=== PATIENT | male | born 1955 | race Caucasian/White ===

== ENCOUNTER 2025-01-14 01:41 | Emergency (ER) | payer MEDICARE, OTHER, SELFPAY ==
[2025-01-14 01:42] VITALS: BMI 25.8
[2025-01-14 01:55] VITALS: BP 139/81; PULSE 106; RESP 19; TEMP 36.4; O2SAT 96
--- NOTE | 2025-01-14 01:59 | XR_ITS ---
Examination: CT chest with intravenous contrast CT abdomen with intravenous contrast CT pelvis with intravenous contrast 2-D coronal and sagittal reconstructions Time of exam: January 14, 2025 at 0521 hours INDICATIONS: Patient fell off a yesterday with injury of the chest and abdomen, chest pain, abdomen obtained . CTDI: vol (mGy) : 11.9 DLP: (mGycm): 938 Technique: Multiple axial images of the chest, abdomen and pelvis with intravenous contrast, 3.0 mm slice thickness. Images obtained post intravenous injection Isovue 370 60 cc. 2-D sagittal and coronal reconstructions. Low dose protocols were performed. One or more of the following dose reduction techniques were used; automated exposure control, adjustment of the mA and/or KV according to patient size, use of iterative reconstruction technique. Findings: Thoracic aorta pulmonary arteries intact, no hemopericardium 5 mm pulmonary nodule right upper lobe 2 mm pulmonary nodule right middle lobe No pneumothorax hemothorax or pulmonary contusion Manubrium, sternum, thoracic and lumbar vertebral bodies appear intact No rib fractures noted Enhancing lesion dome of the liver probable hemangioma, 20 mm No liver splenic or renal laceration no perinephric hematoma Abdominal aorta intact, no free body in the abdomen or pelvis Urinary bladder intact Hips and bones of the pelvis is intact IMPRESSION: No hemopericardium, pneumothorax, pulmonary contusion or hemothorax No abdominal parenchymal laceration Abdominal aorta intact No free body in the abdomen or pelvis Heavy calcification versus stent in the left anterior descending coronary artery Recommend 6 month follow-up CT chest without contrast to document stability of pulmonary nodules described above
--- NOTE | 2025-01-14 02:01 | XR_ITS ---
Examination: CT brain head without contrast. 2-D sagittal coronal reconstructions Date and time of exam:January 14, 2025 0517 hours INDICATIONS: Patient fell 3 feet off a ladder with injury to the head today, head pain CTDI: vol (mGy):47.5 DLP: (mGycm):981 Technique: Multiple CT axial sections of the brain have been obtained, 5 mm slice thickness. Contrast has not been administered. 2-D sagittal, coronal reconstructions have been obtained Low dose protocols were performed. One or more of the following dose reduction techniques were used; automated exposure control, adjustment of the mA and/or KV according to patient size, use of iterative reconstruction technique. Findings: No significant ventricular enlargement. Intra-axial or extra-axial hemorrhage density is not seen. No mass effect or midline shift Basal cisterns are not remarkable. Fourth ventricle is midline. Cranial vault intact. Impression: Negative for acute hemorrhage, mass effect or midline shift
--- NOTE | 2025-01-14 02:01 | XR_ITS ---
Examination: CT cervical spine without contrast 2-D sagittal reconstructions 2-D coronal reconstructions 3-D reconstructions. Exam date and time:January 14, 2025 0517 hours INDICATIONS: Patient fell off a ladder today with injury to the neck, neck pain CTDI:vol (mGy) 8.61 DLP: (mGycm) 199 Technique: Multiple 2 mm axial sections of the cervical spine have been obtained. The coronal and sagittal reconstructions have been obtained. 3-D reconstructions have been obtained. Low dose protocols were performed. One or more of the following dose reduction techniques were used; automated exposure control, adjustment of the mA and/or KV according to patient size, use of iterative reconstruction technique. Findings: Axial sections demonstrate intact base of the skull. C1 exhibit satisfactory relationship to the odontoid. No acute cervical vertebral body fracture seen. Alignment posterior spinous processes satisfactory. Impression: No acute cervical fracture. 6 mm nodule right upper lobe, consider CT chest without contrast follow-up
--- NOTE | 2025-01-14 02:02 | EDRME_ITS ---
Rapid Medical Screening Exam [facility] Arrival date/time: 01/14/25 01:41 69M with history of CAD on Plavix presents to ED with mid back pain after mechanical fall backwards yesterday. There is also some vague ab pain and N/V. Chief Complaint: Back Pain/Injury Vital signs: Vital Signs Temperature 97.6 F 01/14/25 01:55 Pulse Rate 106 H 01/14/25 01:55 Respiratory Rate 19 01/14/25 01:55 Blood Pressure 139/81 H 01/14/25 01:55 Pulse Oximetry (%) 96 01/14/25 01:55 Oxygen Delivery Method Room Air 01/14/25 01:55
[2025-01-14 02:29] LABS: Collection Type, Urine Clean Catch; Squamous Epithelial Cell,Urine 0 /hpf (0-5)
[2025-01-14 02:34] LABS: Basophils # (Auto) 0.1 Thou/mm3 (0.0-0.2); Basophils % (Auto) 1 % (0-2.5); Eosinophils # (Auto) 0.1 Thou/mm3 (0.0-0.5); Eosinophils % (Auto) 1 % (0-10); Hematocrit 46.2 % (41.0-53.0); Hemoglobin 16.2 g/dL (13.5-16.0); Immature Granulocytes % (Auto) 0 % (0-0); Immature Granulocytes Auto 0.02 Thou/mm3 (0.00-0.00); Lymphocytes % (Auto) 37 % (10-50); Mean Corpuscular HGB Conc 35.1 g/dl (31.0-37.0); Mean Corpuscular Hemoglobin 28.4 pg (25.0-35.0); Mean Corpuscular Volume 81 fL (80-100); Monocytes # (Auto) 0.8 Thou/mm3 (0.0-0.8); Monocytes % (Auto) 9 % (0-12); Neutrophils # (Auto) 4.2 Thou/mm3 (1.8-7.7); Neutrophils % (Auto) 52 % (37-80); Nucleated Red Blood Cell % 0 /100 WBC (0); Platelet Count 253 Thou/mm3 (140-440); RDW Standard Deviation 38.9 fL (35.1-43.9); Red Blood Count 5.71 Miln/mm3 (4.50-5.90); White Blood Count 8.1 Thou/mm3 (3.8-10.6)
[2025-01-14 02:36] LABS: Bilirubin,Urine Negative (Negative); Blood,Urine Negative (Negative); Clarity,Urine Clear (Clear/Hazy); Color,Urine Lt-Yellow (Lt Yel-Yel); Glucose, Urine Negative (Negative); Ketones,Urine Negative (Negative); Leukocyte Esterase,Urine Negative (Negative); Nitrite,Urine Negative (Negative); PH,Urine 6.5 (5.0-7.0); Protein,Urine Negative (Neg - Trace); RBC,Urine 4 /hpf (0-3); Specific Gravity,Urine 1.026 (1.001-1.035); Urobilinogen,Urine Negative mg/dL (0.0-1.0); WBC,Urine 1 /hpf (0-5)
[2025-01-14] MEDS: MORPHINE SULF INJ 10 MG/ML VIAL 5 MG IVP (02:36)
[2025-01-14] MEDS: ONDANSETRON INJ 2 MG/ML INJ 2 ML 4 MG IV (02:36)
[2025-01-14 02:59] LABS: Alanine Aminotransferase 17 U/L (10-49); Albumin, Serum 4.3 gm/dL (3.4-4.8); Albumin/Globulin Ratio 1.7 (1.2-2.2); Alkaline Phosphatase 72 U/L (46-116); Anion Gap 12 (7-16); Aspartate Amino Transferase 24 U/L (0-34); BUN/Creatinine Ratio 15 Ratio (12-20); Bilirubin,Total 0.5 mg/dL (0.3-1.2); Blood Urea Nitrogen 18 mg/dL (9-23); Calcium 9.8 mg/dL (8.3-10.6); Calcium (Corrected) 9.8 mg/dL (8.5-10.1); Carbon Dioxide 21.5 mMol/L (20.0-31.0); Chloride 109 mMol/L (98-107); Creatinine (Component) 1.2 mg/dL (0.6-1.3); Estimated Creatinine Clearance 57.8 mL/min (>60); Globulin 2.6 gm/dL (2.3-3.5); Glucose 126 mg/dL (74-106); Osmolality,Calculated 287 (275-295); Potassium 3.8 mMol/L (3.4-5.1); Sodium 142 mMol/L (136-145); Total Protein 6.9 gm/dL (5.7-8.2); eGFR > 60 See Note
--- NOTE | 2025-01-14 05:37 | PRELIM_ITS ---
CT scan of the head without intravenous contrast (axial sections with sagittal and coronal reformats) January 14, 2025 0517 hours Clinical History: Fall on thinner; nausea/vomiting; back pain. Comparison: None. Findings: There is no evidence of intracranial hemorrhage, mass effect or midline shift. There are periventricular white matter hypodensities, compatible with chronic small vessel ischemia. There is mild volume loss. The calvarium is intact. The mastoid air cells and the visualized paranasal sinuses are clear. Impression: No evidence of intracranial hemorrhage, midline shift or calvarial fracture. Periventricular chronic small vessel ischemia and volume loss. Report Electronically Signed By: Luis Armando Vasquez 01/14/2025 5:37:01 AM [EST]
--- NOTE | 2025-01-14 05:39 | PRELIM_ITS ---
CT scan of the cervical spine without intravenous contrast (axial sections with sagittal and coronal reformats) January 14, 2025 0517 hours Clinical History: Fall on thinner; nausea/vomiting; back pain. Comparison: None. Findings: There is no fracture or subluxation. The prevertebral soft tissues are unremarkable. Loss of the physiologic cervical lordosis. Right upper lobe lung nodule measuring 0.6 cm. Impression: No evidence of fracture or subluxation. Right upper lobe lung nodule, correlation with imaging of the chest is recommended. Report Electronically Signed By: Luis Armando Vasquez 01/14/2025 5:38:27 AM [EST]
--- NOTE | 2025-01-14 05:54 | PRELIM_ITS ---
CT scan of the chest, abdomen and pelvis with intravenous contrast (axial sections with sagittal and coronal reformats) January 14, 2025 at 0521 hours Clinical History: Fall on thinner, nausea vomiting back pain. Comparison: None. Findings: Right upper lobe lung nodule measuring 0.7 cm. There is no pleural effusion or pneumothorax. There is no mediastinal collection or aortic injury. There is no pericardial effusion. The gallbladder, spleen, pancreas, adrenals and kidneys are unremarkable. Hyperenhancing lesion of the liver dome measures 1.6 cm. The bowel is unremarkable. The urinary bladder is unremarkable. There is no free fluid or air. No fracture is identified. Diverticulosis of the colon. Dilated left atrium. Coronary arteries calcifications. Impression: 1. No visceral or bony injury to the chest, abdomen or pelvis. 2. Hyperenhancing lesion of the liver dome, consider further evaluation for characterization, possibly hemangioma. 3. Dilated left atrium. 4. Indeterminant lung nodule. Follow-up in 3 months is recommended. 5. Coronary arteries calcifications. If acute myocardial infarction is clinically suspected consider correlation with troponin. Report Electronically Signed By: Luis Armando Vasquez 01/14/2025 5:53:28 AM [EST]
--- NOTE | 2025-01-14 06:31 | EDNOTE_ITS ---
ED Fall Injury RME/HPI General Chief Complaint: Back Pain/Injury Stated Complaint: BACK PAIN AFTER FALL 3FT LADDER Time Seen by Provider: 01/14/25 02:12 Arrival date/time: 01/14/25 01:41 69M with history of CAD on Plavix presents to ED with mid back pain after mechanical fall backwards yesterday. There is also some vague ab pain and N/V. Limitations: no limitations RME / HPI RME / HPI Narrative: 01/14/25 01:41 69M with history of CAD on Plavix presents to ED with mid back pain after mechanical fall backwards yesterday. There is also some vague ab pain and N/V. Related Data Home Medications ?Medication ?Instructions ?Recorded ?Confirmed Amox Tr/Potassium Clavulanate 1 tab PO BID 14 days ##0 10/28/13 (Amox Tr-K Clv 500/125 Mg Tab) D-Methorphan Hb/Prometh Hcl 1 tsp PO QID PRN COUGH ##0 10/28/13 (Promethazine-Dm Syrup) clopidogrel 75 mg tablet (Plavix) 75 mg PO QDAY #0 tab s 10/28/13 Aspirin (Aspir 81) 81 mg PO QDAY ##0 10/29/13 HYDROCODONE BITARTRATE/APAP (NORCO 10 mg PO [id number] UT N PAIN ##30 10/29/13 10/325) Previous Rx's ?Medication ?Instructions ?Recorded ondansetron 4 mg disintegrating 4 mg PO Q8H PRN nausea and 12/14/23 tablet vomiting #7 tabs cyclobenzaprine 10 mg tablet 10 mg PO TID PRN muscle s pasm 10 01/14/25 days #30 tab-caps ibuprofen 800 mg tablet 800 mg PO TID PRN pain #30 t abs 01/14/25 Allergies Allergy/AdvReac Type Severity Reaction Status Date / Time No Known Allergies Allergy Mild Uncoded 04/28/13 17:31 Review of Systems Review of Systems Systems Reviewed: All systems reviewed, normal except as documented Constitutional Constitutional: Reports system reviewed and no additional complaints, except as documented, Denies fever(s) and Denies headache(s) Eyes Eyes: Reports system reviewed and no additional complaints, except as documented and Denies blurry vision ENT Ears, Nose, Mouth, and Throat: Reports system reviewed and no additional complaints, except as documented, Denies headache(s), Denies nasal congestion and Denies nasal discharge Cardiovascular Cardiovascular: Reports system reviewed and no additional complaints, except as documented, Denies chest pain and Denies dyspnea Respiratory Respiratory: Reports system reviewed and no additional complaints, except as documented, Denies chest congestion, Denies cough and Denies dyspnea Gastrointestinal Gastrointestinal: Reports system reviewed and no additional complaints, except as documented and Denies abdominal pain Musculoskeletal Musculoskeletal: Reports system reviewed and no additional complaints, except as documented and Reports back pain Integumentary/Breasts Skin/Breast: Reports system reviewed and no additional complaints, except as documented, Denies rash and Reports wounds (Abrasion back) Neurologic Neurologic: Reports system reviewed and no additional complaints, except as documented, Reports as per HPI and Denies headache(s) Past Medical History Past Medical History CARDIAC: Positive Cardiac Disorders (CAD) RESPIRATORY: Negative Asthma GENITOURINARY: Negative Renal Disease ENDOCRINE: Negative Diabetes Mellitus Type 2 HEMATOLOGIC: Negative Sickle Cell Disease Social History SMOKING STATUS: Never smoker ED Exam General Limitations: Present no limitations General appearance: Present alert and in no apparent distress Head Head exam: Present atraumatic Eye Eye exam: Present normal appearance, PERRL and EOMI ENT ENT exam: Present normal exam, normal oropharynx and mucous membranes moist Neck Neck exam: Present normal inspection, full ROM and trachea midline Chest Chest inspection: Present normal inspection and symmetric chest wall rise Respiratory Respiratory exam: Present normal lung sounds bilaterally Cardiovascular Cardiovascular exam: Present regular rate, normal rhythm and normal heart sounds Abdominal Exam Abdominal exam: Present soft and normal bowel sounds; Absent distention, tenderness, guarding, rebound or rigidity Extremities Exam Extremities exam: Present normal inspection and full ROM Back Exam Back exam: Present full ROM, tenderness, muscle spasm and paraspinal tenderness; Absent CVA tenderness (R) or CVA tenderness (L) Neurological Exam Neurological exam: Present alert, oriented X3 and CN II-XII intact Psychiatric Psychiatric exam: Present normal affect and normal mood Skin Skin exam: Present warm, dry, intact and normal color Course Quality Measures none Orders Category Date Time Status CT Screening NOW Care 01/14/25 01:59 Active Insert IV NOW Care 01/14/25 01:[address] cervical spine wo con Stat Exams 01/14/25 02:[address] chest abdomen pelvis w Stat Exams 01/14/25 01:[address] head/brain wo con Stat Exams 01/14/25 02:01 Taken CBC Stat Lab 01/14/25 02:23 Completed CMP [Comprehensive Metabolic Panel] Stat Lab 01/14/25 02:23 Completed Urinalysis Stat Lab 01/14/25 02:23 Completed Morphine Inj Med 01/14/25 02:02 Discontinued 5 mg IVP X1 ONE Ondansetron Inj [Zofran Inj] Med 01/14/25 02:02 Discontinued 4 mg IV X1 ONE Vital Signs Vital signs: Vital Signs Temperature 97.6 F 01/14/25 01:55 Pulse Rate 106 H 01/14/25 01:55 Respiratory Rate 19 01/14/25 01:55 Blood Pressure 139/81 H 01/14/25 01:55 Pulse Oximetry (%) 96 01/14/25 01:55 Oxygen Delivery Method Room Air 01/14/25 01:55 O2 saturation 96% on room air within normal limits Fall MDM Narrative MDM Narrative:: 69M with history of CAD on Plavix presents to ED with mid back pain after mechanical fall backwards yesterday. There is also some vague ab pain and N/V. On exam patient well-appearing patient is not appear ill or toxic patient does not appear in any acute distress Lab work as well as imaging obtained There are incidental findings on the CT scan but no acute emergent findings Patient walks with steady gait reports no saddle anesthesia no loss of bowel or bladder Patient has an incidental pulmonary nodule as well as liver lesion Patient was given a copy of the CT report and instructed to follow-up with primary care doctor Patient discharged home in no distress to follow-up with primary care doctor in the next 24 to 48 hours and for any worsening symptoms to return to the ER immediately Patient data External records reviewed:: [facility] previous records Clinical information provided by:: patient Social determinants that could affect healthcare access:: none Patient has the following chronic illnesses:: She history How is presenting disease/condition affected by chronic disease/condition?: uneffected by Evaluation data The following diagnostics were reviewed and interpreted by me:: lab results and radiology exam(s) Lab and/or radiology exams considered but not ordered:: Labs radiology obtain Interpretation Summary: Reviewed by me Medications / Prescriptions Medications or Prescriptions considered but not ordered:: Given Medication administrations:: Medication Administration History Discontinued Medications Morphine Sulfate (Morphine Sulf Inj 10 Mg/Ml Vial) 5 mg IVP X1 ONE Stop: 01/14/25 02:03 Last Admin: 01/14/25 02:36 Dose: 5 mg Documented By: DUSTY Ondansetron HCl (Ondansetron Inj 2 Mg/Ml Inj 2 Ml) 4 mg IV X1 ONE; Protocol Stop: 01/14/25 02:03 Last Admin: 01/14/25 02:36 Dose: 4 mg Documented By: DUSTY Given Consultations Consultation(s) initiated? (list below): No Diagnosis Fall Differential Diagnosis: other (Back pain, contusion) Most likely diagnosis given after review of the tests above:: Back pain Admission Indicated Admission indicated?: not indicated Admission Request Was there a request for admission?: No Disposition Plan Disposition Plan: Discharge Discharge Attestation Discharge Attestation: The patient and all family members were given an opportunity to ask questions and understood the discharge instructions. Discharge instructions specifically effects, indications for sooner follow up or return to the emergency department, and the expected course of current diagnosis. Patient condition: Stable Discharge Plan Plan Patient Disposition: HOME (Self Care) Disposition Comment: Stable Prescriptions/Referrals Prescriptions/Med Rec: New cyclobenzaprine 10 mg tablet 10 mg PO TID PRN (Reason: muscle spasm) 10 Days Qty: 30 0RF ibuprofen 800 mg tablet 800 mg PO TID PRN (Reason: pain) Qty: 30 0RF No Action Amox Tr/Potassium Clavulanate (Amox Tr-K Clv 500/125 Mg Tab) 1 TAB tablet 1 tab PO BID 14 Days Qty: 0 clopidogrel [Plavix] 75 MG tablet 75 mg PO QDAY Qty: 0 D-Methorphan Hb/Prometh Hcl (Promethazine-Dm Syrup) 120 ML syrup 1 tsp PO QID PRN (Reason: COUGH) Qty: 0 Aspirin (Aspir 81) 81 MG TABLET.DR 81 mg PO QDAY Qty: 0 HYDROCODONE BITARTRATE/APAP (NORCO 10/325) 1 TAB tablet 10 mg PO [id number] PRN (Reason: PAIN) Qty: 30 ondansetron 4 mg tablet,disintegrating 4 mg PO Q8H PRN (Reason: nausea and vomiting) Qty: 7 0RF Referrals: No Primary/Family,Physician [Primary Care Provider] - 01/15/25 Problem List Clinical Impression: Fall, Back pain, Incidental lung nodule, Lesion of liver Patient/Caregiver Discharge Instructions Education Materials: Back Safety: Lifting Additional Instructions: Please follow up with your primary care doctor in the next 24-48hrs for any worsening symptoms return here immediately Please bring copy of your CT report to your primary care doctor for further evaluation of lung nodule and liver lesion Print Language: Bruneian Stand Alone Forms: Syl Award Info., Patient Portal Info Letter PA/PRINCIPAL TECHNOLOGIST Supervising Physician PA/PRINCIPAL TECHNOLOGIST Supervising Physician: Dr Becker
== END 2025-01-14 06:50 | disposition home or self-care (01) ==
PROVIDERS: Physician Assistant; Emergency Provider Emergency Medicine
DX: S29.9XXA Unspecified injury of thorax, initial encounter (principal); S39.91XA Unspecified injury of abdomen, initial encounter; S09.90XA Unspecified injury of head, initial encounter; S19.9XXA Unspecified injury of neck, initial encounter; K76.9 Liver disease, unspecified; R91.1 Solitary pulmonary nodule; W11.XXXA Fall on and from ladder, initial encounter
CPT/HCPCS: 36415; 70450; 71260; 72125; 74177; 80053; 81001; 85025; 96374; 96375; 99285; A4649; J2270; J2405; Q9967

== ENCOUNTER → 2025-02-18 | Outpatient (CLI) | payer MEDICARE, OTHER, SELFPAY ==
--- NOTE | 2025-02-18 16:04 | XR_ITS ---
Examination: PA lateral chest 2 views TECHNIQUE: Upright PA and lateral chest 2 views Standing time: February 18, 2025 1613 hours INDICATIONS: History pulmonary nodule, CT chest January 14, 2025 5 mm pulmonary nodule right upper lobe 2 mm pulmonary nodule right middle lobe FINDINGS: Normal heart size 5 mm pulmonary nodule right upper lobe noted No new pulmonary nodules No pneumonia or pulmonary edema IMPRESSION: 5 mm pulmonary nodule right upper lobe Given the CT chest findings January 14, 2025, recommend follow-up CT chest in 6 months
== END | disposition home or self-care (01) ==
LOC: CDIM 15:46
PROVIDERS: PCP Family Medicine; Referring Provider Family Medicine; Visit Provider Family Medicine
DX: R91.1 Solitary pulmonary nodule (principal)
CPT/HCPCS: 71046

== ENCOUNTER → 2025-03-17 | Outpatient (CLI) | payer MEDICARE, OTHER, SELFPAY | END | disposition home or self-care (01) | LOC: COPL 16:29 | PROVIDERS: PCP Family Medicine; Referring Provider Specialist; Visit Provider Specialist | DX: K76.89 Other specified diseases of liver (principal) | CPT/HCPCS: 36415; 82105 ==

== ENCOUNTER → 2025-03-23 | Outpatient (CLI) | payer MEDICARE, OTHER, SELFPAY ==
[2025-03-23 17:00] LABS: Alanine Aminotransferase 18 U/L (10-49); Albumin, Serum 4.3 gm/dL (3.4-4.8); Alkaline Phosphatase 76 U/L (46-116); Anion Gap 12 (7-16); Aspartate Amino Transferase 20 U/L (0-34); BUN/Creatinine Ratio 18 Ratio (12-20); Bilirubin,Total 0.6 mg/dL (0.3-1.2); Blood Urea Nitrogen 22 mg/dL (9-23); Calcium 9.1 mg/dL (8.3-10.6); Calcium (Corrected) 9.1 mg/dL (8.5-10.1); Carbon Dioxide 25.1 mMol/L (20.0-31.0); Chloride 107 mMol/L (98-107); Creatinine (Component) 1.2 mg/dL (0.6-1.3); Globulin 2.2 gm/dL (2.3-3.5); Glucose 119 mg/dL (74-106); Osmolality,Calculated 291 (275-295); Sodium 144 mMol/L (136-145); Total Protein 6.5 gm/dL (5.7-8.2); eGFR > 60 See Note
== END | disposition home or self-care (01) ==
LOC: COPL 16:05
PROVIDERS: PCP Family Medicine; Referring Provider Specialist; Visit Provider Specialist
DX: K76.89 Other specified diseases of liver (principal)
CPT/HCPCS: 36415; 80053

== ENCOUNTER → 2025-04-16 | Outpatient (CLI) | payer MEDICARE, OTHER, SELFPAY ==
--- NOTE | 2025-04-16 14:45 | XR_ITS ---
Examination: MRI hand with intravenous contrast. MRI abdomen without intravenous contrast. Date and time of exam: April 16, 2025 at 1558 hours INDICATIONS: CT examination January 14, 2025 20 mm liver hemangioma Technique: Multiple axial, sagittal and coronal sections of the abdomen obtained. Transverse images, TR 6020, TE 107. T1 weighted transverse images, TR 582, TE 9.5. T2-weighted sagittal images, TR 4000, TE 105. T2-weighted sagittal images, TR 4000, TE 5. Coronal images, TR 4210, TE 107. Axial and coronal images are obtained post 19 cc intravenous injection, gadolinium. Findings: Precontrast images demonstrate 11 mm lesion upper right lobe the liver with increased signal on the T2-weighted images Postcontrast images demonstrate mild diffuse enhancement of this lesion No biliary tract dilatation Spleen not enlarged No gallstones Normal pancreatic contour No adrenal mass No hydronephrosis No abdominal lymphadenopathy IMPRESSION: 11 mm upper right lobe liver lesion with mild diffuse enhancement on the postcontrast images which may represent a hemangioma, recommend 3 month follow-up hepatic sonography
--- NOTE | 2025-04-16 15:45 | XR_ITS ---
Examination: MRI pelvis with intravenous contrast. MRI pelvis without intravenous contrast. Date and time of exam: April 16, 2025 at 1458 hours INDICATIONS: Diseases of the liver Technique: Multiple axial, sagittal and coronal sections of the pelvis obtained. Transverse images, TR 6020, TE 107. T1 weighted transverse images, TR 582, TE 9.5. T2-weighted sagittal images, TR 4000, TE 105. T2-weighted sagittal images, TR 4000, TE 5. Coronal images, TR 4210, TE 107. Axial and coronal images are obtained post 19 cc intravenous injection, gadolinium. Findings: No common iliac and external iliac internal iliac or common femoral lymphadenopathy Normal seminal vesicles Transverse prostate dimension 3.9 cm Partially cystic nodule right lobe of the prostate, 12 mm with irregular enhancement No abnormal enhancement in the visualized osseous structures No inguinal hernias IMPRESSION: Transverse prostate dimension 3.9 cm Partially cystic nodule right lobe of the prostate 12 mm with irregular enhancement, recommend transrectal prostate sonography follow-up
== END | disposition home or self-care (01) ==
LOC: SMRI 14:07
PROVIDERS: PCP Family Medicine; Referring Provider Specialist; Visit Provider Specialist
DX: N42.89 Other specified disorders of prostate (principal); K76.89 Other specified diseases of liver
CPT/HCPCS: 72197; 74183; A9579

== ENCOUNTER → 2025-04-29 | Outpatient (CLI) | payer MEDICARE, OTHER, SELFPAY ==
[2025-04-29 17:46] LABS: Prostate Specific Antigen 0.50 ng/mL (0-4.00)
== END | disposition home or self-care (01) ==
PROVIDERS: PCP Family Medicine; Referring Provider Specialist; Visit Provider Specialist
DX: N40.3 Nodular prostate with lower urinary tract symptoms (principal)
CPT/HCPCS: 36415; 84153

== ENCOUNTER → 2025-07-15 | Outpatient (BNVA) | payer MEDICARE, OTHER, SELFPAY | END | disposition home or self-care (01) | PROVIDERS: PCP Family Medicine; Referring Provider Specialist; Visit Provider Urology | DX: N40.0 Benign prostatic hyperplasia without lower urinary tract symptoms (principal); N40.2 Nodular prostate without lower urinary tract symptoms; I48.91 Unspecified atrial fibrillation | CPT/HCPCS: 81003; 99212; G0463 ==

== ENCOUNTER 2025-08-11 10:52 | Emergency (ER) | payer MEDICARE, OTHER, SELFPAY ==
[2025-08-11] VITALS (7 sets, daily range): BP systolic 110–141; BP diastolic 69–88; PULSE 69–83; RESP 12–19; TEMP 36.4–36.7; O2SAT 93–98; BMI 27.3
--- NOTE | 2025-08-11 11:00 | EKG_ITS ---
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
--- NOTE | 2025-08-11 11:18 | XR_ITS ---
Examination: CT brain head without contrast. 2-D sagittal coronal reconstructions Date and time of exam: August 11, 2025, 1138 hours, comparison January 14, 2025 INDICATIONS: Severe headache today CTDI: vol (mGy): 51.8 DLP: (mGycm): 997 Technique: Multiple CT axial sections of the brain have been obtained, 5 mm slice thickness. Contrast has not been administered. 2-D sagittal, coronal reconstructions have been obtained Low dose protocols were performed. One or more of the following dose reduction techniques were used; automated exposure control, adjustment of the mA and/or KV according to patient size, use of iterative reconstruction technique. Findings: No significant ventricular enlargement. Intra-axial or extra-axial hemorrhage density is not seen. No mass effect or midline shift Basal cisterns are not remarkable. Fourth ventricle is midline. Cranial vault intact. Impression: Negative for acute hemorrhage, mass effect or midline shift As clinically warranted, consider brain MRI/MRA without contrast follow-up
--- NOTE | 2025-08-11 11:19 | PD.EDRME ---
Rapid Medical Screening Exam [facility] Arrival date/time: 08/11/25 10:52 69-year-old male with history of A-fib, hypertension, hypercholesterolemia and insomnia presents to the emergency department today stating that he took 2 Ambien's last night 1 at 10 PM and 1 approximately 2 hours later patient reports that he feels off at this time patient reports headache dizziness weakness patient reports that the Ambien is new prescription for him Chief Complaint: General Adult/Misc Complain Vital signs: Vital Signs Temperature 98.0 F 08/11/25 11:04 Pulse Rate 74 08/11/25 11:04 Respiratory Rate 19 08/11/25 11:04 Blood Pressure 125/88 H 08/11/25 11:04 Pulse Oximetry (%) 97 08/11/25 11:04 Oxygen Delivery Method Room Air 08/11/25 11:04
[2025-08-11 12:10] LABS: Basophils # (Auto) 0.0 Thou/mm3 (0.0-0.2); Basophils % (Auto) 0 % (0-2.5); Eosinophils # (Auto) 0.1 Thou/mm3 (0.0-0.5); Eosinophils % (Auto) 1 % (0-10); Hematocrit 46.6 % (41.0-53.0); Hemoglobin 16.4 g/dL (13.5-16.0); Immature Granulocytes Auto 0.08 Thou/mm3 (0.00-0.00); Lymphocytes # (Auto) 2.1 Thou/mm3 (1.0-4.8); Lymphocytes % (Auto) 21 % (10-50); Mean Corpuscular HGB Conc 35.2 g/dl (31.0-37.0); Mean Corpuscular Hemoglobin 28.0 pg (25.0-35.0); Mean Corpuscular Volume 80 fL (80-100); Monocytes # (Auto) 0.7 Thou/mm3 (0.0-0.8); Monocytes % (Auto) 7 % (0-12); Neutrophils # (Auto) 7.1 Thou/mm3 (1.8-7.7); Neutrophils % (Auto) 71 % (37-80); Nucleated Red Blood Cell # 0.00 Thou/mm3 (0.00-0.00); Nucleated Red Blood Cell % 0 /100 WBC (0); Platelet Count 234 Thou/mm3 (140-440); RDW Standard Deviation 37.9 fL (35.1-43.9); Red Blood Count 5.86 Miln/mm3 (4.50-5.90); White Blood Count 10.1 Thou/mm3 (3.8-10.6)
[2025-08-11 12:29] LABS: INR 1.0 (0.9-1.3); Partial Thromboplastin Time 26.2 Seconds (22.0-36.0); Prothrombin Time 11.0 Seconds (9.0-12.2)
[2025-08-11 12:32] LABS: B-Type Natriuretic Peptide 56 pg/mL (0-100)
[2025-08-11 12:34] LABS: Alanine Aminotransferase 48 U/L (10-49); Albumin, Serum 4.7 gm/dL (3.4-4.8); Albumin/Globulin Ratio 2.1 (1.2-2.2); Alkaline Phosphatase 78 U/L (46-116); Anion Gap 13 (7-16); Aspartate Amino Transferase 34 U/L (0-34); BUN/Creatinine Ratio 12 Ratio (12-20); Bilirubin,Total 1.1 mg/dL (0.3-1.2); Blood Urea Nitrogen 13 mg/dL (9-23); Calcium 9.5 mg/dL (8.3-10.6); Calcium (Corrected) 9.5 mg/dL (8.5-10.1); Carbon Dioxide 21.7 mMol/L (20.0-31.0); Chloride 103 mMol/L (98-107); Creatinine (Component) 1.1 mg/dL (0.6-1.3); Digoxin 0.5 ng/mL (0.8-2.0); Estimated Creatinine Clearance 63.0 mL/min (>60); Globulin 2.2 gm/dL (2.3-3.5); Glucose 186 mg/dL (74-106); Magnesium 1.7 mg/dL (1.6-2.6); Osmolality,Calculated 280 (275-295); Potassium 4.4 mMol/L (3.4-5.1); Sodium 138 mMol/L (136-145); Total Protein 6.9 gm/dL (5.7-8.2); Troponin I < 0.002 ng/mL (0.0-0.045); eGFR > 60 See Note
--- NOTE | 2025-08-11 13:55 | PD.EDWEAK ---
ED Weakness RME/HPI General Chief complaint: General Adult/Misc Complain Stated complaint: A fib, has chest pressure took Ambien last night Time Seen by Provider: 08/11/25 13:54 Arrival date/time: 08/11/25 10:52 Limitations: no limitations RME / HPI RME / HPI Narrative: 08/11/25 10:52 69-year-old male with history of A-fib, hypertension, hypercholesterolemia and insomnia presents to the emergency department today stating that he took 2 Ambien's last night 1 at 10 PM and 1 approximately 2 hours later patient reports that he feels off at this time patient reports headache dizziness weakness patient reports that the Ambien is new prescription for him Dr. Jordan evaluation Patient is a 69-year-old male lives in the emergency department with concerns for feeling excessively sleeping after he took multiple doses of Ambien last night. Took 10mg at 10pm and then another 10mg at 12am. Patient fell asleep woke up okay and then approximately 930 started complaining of abdominal pain, chest tightness and feeling generally unwell and very weak. Endorses some nausea. Denies dysuria. Denies any surgeries to his belly. Patient is having regular bowel movements. Patient takes Eliquis 5 mg twice daily, digoxin 125 mcg x 1, metoprolol 50 mg twice a day, atorvastatin 40 mg once a day, amiodarone 200 mg twice a day Related Data Home Medications ?Medication ?Instructions ?Recorded ?Confirmed amiodarone 200 mg tablet 200 mg PO BID 07/15/25 07/15/25 apixaban 5 mg tablet (Eliquis) 5 mg PO BID 07/15/25 07/15/25 atorvastatin 40 mg tablet 40 mg PO QDAY 07/15/25 07/15/25 digoxin 125 mcg (0.125 mg) tablet 125 mcg PO QDAY 07/15/25 07/15/25 metoprolol tartrate 50 mg tablet 50 mg PO BID 07/15/25 07/15/25 tamsulosin 0.4 mg capsule 0.4 mg PO QHS 07/15/25 07/15/25 Previous Rx's ?Medication ?Instructions ?Recorded ondansetron 4 mg disintegrating 4 mg PO Q12H PRN nausea and 08/11/25 tablet vomiting 2 days #4 tabs Allergies Allergy/AdvReac Type Severity Reaction Status Date / Time neomycin Allergy Rash Verified 07/15/25 11:23 ED Exam General Limitations: Present no limitations General appearance: Present alert and in no apparent distress (However appears uncomfortable) Head Head exam: Present atraumatic and normocephalic Eye Eye exam: Present normal appearance, PERRL and EOMI ENT ENT exam: Present normal exam and normal oropharynx Neck Neck exam: Present normal inspection and full ROM Chest Chest inspection: Present symmetric chest wall rise Respiratory Respiratory exam: Absent respiratory distress Cardiovascular Cardiovascular exam: Present regular rate Abdominal Exam Abdominal exam: Present soft; Absent distention, tenderness or guarding Extremities Exam Extremities exam: Present normal inspection and full ROM; Absent tenderness Neurological Exam Neurological exam: Present alert and other (No focal neurodeficits, intact visual field deficits, strong in all 4 extremities, sensation intact) Skin Skin exam: Present warm, dry and intact Course Quality Measures none Orders Category Date Time Status CT Screening NOW Care 08/11/25 15:03 Active EKG (ED ONLY) *Do not use* NOW Care 08/11/25 11:00 Completed Encourage Fluid Intake NOW Care 08/11/25 14:[address] abdomen pelvis w con Stat Exams 08/11/25 15:[address] head/brain wo con Stat Exams 08/11/25 11:18 Completed EKG (ED Only) Stat Exams 08/11/25 11:00 Draft Acetaminophen Stat Lab 08/11/25 11:50 Completed Alcohol, Blood Medical Stat Lab 08/11/25 11:50 Completed B-Type Natriuretic Peptide Stat Lab 08/11/25 11:50 Completed CBC Stat Lab 08/11/25 11:50 Completed Comprehensive Metabolic Panel Stat Lab 08/11/25 11:50 Completed Digoxin Stat Lab 08/11/25 11:50 Completed Drug Screen,Urine Stat Lab 08/11/25 14:02 Completed Lipase Stat Lab 08/11/25 11:50 Completed Magnesium Stat Lab 08/11/25 11:50 Completed Partial Thromboplastin Time Stat Lab 08/11/25 11:50 Completed Prothrombin Time with INR Stat Lab 08/11/25 11:50 Completed Salicylate Stat Lab 08/11/25 11:50 Completed Troponin I Routine Lab 08/11/25 14:24 Completed Troponin I Stat Lab 08/11/25 11:50 Completed Urinalysis, C/S if Indicated Stat Lab 08/11/25 14:02 Completed VBG [Venous Blood Gas] Stat Lab 08/11/25 14:24 Completed Lidocaine 2% Viscous [Xylocaine 2% Viscous] Med 08/11/25 14:35 Discontinued 15 ml PO X1 ONE Ondansetron Inj [Zofran Inj] Med 08/11/25 15:03 Discontinued 4 mg IVP X1 ONE mg Hyd/Al Hyd/Jaciel Susp [Maalox Susp] Med 08/11/25 14:35 Discontinued 30 ml PO X1 ONE Vital Signs Vital signs: Vital Signs Temperature 98.0 F 08/11/25 11:04 Pulse Rate 74 08/11/25 11:04 Respiratory Rate 19 08/11/25 11:04 Blood Pressure 125/88 H 08/11/25 11:04 Pulse Oximetry (%) 97 08/11/25 11:04 Oxygen Delivery Method Room Air 08/11/25 11:04 Weakness MDM Narrative MDM Narrative:: Patient is a 69-year-old male is in the emergency department with concerns for feeling strange after having taken 2 Ambien sleep pills. Vital signs and exam as listed. Concern for metabolic derangement, metabolic encephalopathy, intracranial hemorrhage, urinary tract infection, other substance use among others. Prior provider evaluated patient. Ordered labs, CT brain, as well as EKG. EKG performed today at 1106 notable for atrial fibrillation, normal QT, nonspecific T wave changes, not a cardiac alert. Troponin not elevated. CT brain unremarkable. Labs without any acute hematologic or significant metabolic derangement, transaminitis, BNP normal Urinalysis with 9 red blood cells 1 white blood cell, no bacteria negative leuk esterase, negative nitrites less likely infected. Drug screen positive for benzodiazepines. Otherwise negative. On my evaluation patient GCS 15 moving all 4 extremities is complaining of abdominal discomfort. Also complaining of some chest discomfort. Ordered repeat troponin, additional labs. I also consulted poison control, states that at this point the peak effect of Ambien has passed, and management is supportive care. Patient can take his home medications. Once patient is feeling better he can go home. Will provide patient with fluids and observe in the emergency department until he is back at his baseline. 3p went to reevaluate patient, abdominal pain got worse not actively vomiting. Given his worsening abdominal discomfort, ordered medication for symptom relief as well as a CT scan of his abdomen and pelvis with contrast. Patient does not any evidence of renal dysfunction. Patient's blood gas pH is normal, lipase normal, troponin not elevated, Tylenol and salicylate level not elevated. CT abdomen pelvis without any acute abnormalities. Patient does have a left-sided kidney cyst. Multiple reevaluations patient hemodynamically stable not in distress tolerating oral intake. Will discharge to home with close return precautions follow-up with your primary care doctor. As well as recommendation that he does not take Ambien again, and take the rest of his home medications as prescribed. Patient data External records reviewed:: [facility] previous records Clinical information provided by:: patient and family Social determinants that could affect healthcare access:: none Patient has the following chronic illnesses:: See MDM How is presenting disease/condition affected by chronic disease/condition?: exacerbated by Evaluation data The following diagnostics were reviewed and interpreted by me:: lab results, radiology exam(s) and EKG tracing(s) Lab and/or radiology exams considered but not ordered:: None Interpretation Summary: See MDM Medications / Prescriptions Medications or Prescriptions considered but not ordered:: None Medication administrations:: Medication Administration History Discontinued Medications Al Hydrox/Mg Hydrox/Simethicone (Mg Hyd/Al Hyd/Jaciel (Maalox Reg) Susp 30 Ml Udc) 30 ml PO X1 ONE Stop: 08/11/25 14:36 Last Admin: 08/11/25 15:31 Dose: Not Given Documented By: EJ Non-Admin Reason: Cancelled by Provider Lidocaine HCl (Lidocaine Viscous 2% 15 Ml Udc) 15 ml PO X1 ONE Stop: 08/11/25 14:36 Last Admin: 08/11/25 15:31 Dose: Not Given Documented By: EJ Non-Admin Reason: Cancelled by Provider Ondansetron HCl (Ondansetron Inj 2 Mg/Ml Inj 2 Ml) 4 mg IVP X1 ONE; Protocol Stop: 08/11/25 15:04 Last Admin: 08/11/25 15:28 Dose: 4 mg Documented By: EJ See above if any Consultations Consultation(s) initiated? (list below): Yes Consultation #1 (Physician, Specialty, Details): Poison control Diagnosis Weakness Differential Diagnosis: other Most likely diagnosis given after review of the tests above:: Metabolic encephalopathy, weakness, chest pain, abdominal discomfort Admission Indicated Admission indicated?: not indicated Admission Request Was there a request for admission?: No Disposition Plan Disposition Plan: Discharge Discharge Attestation Discharge Attestation: The patient and all family members were given an opportunity to ask questions and understood the discharge instructions. Discharge instructions specifically effects, indications for sooner follow up or return to the emergency department, and the expected course of current diagnosis. Patient condition: Stable Discharge Plan Plan Patient Disposition: HOME (Self Care) Prescriptions/Referrals Prescriptions/Med Rec: New ondansetron 4 mg tablet,disintegrating 4 mg PO Q12H PRN (Reason: nausea and vomiting) 2 Days Qty: 4 0RF No Action atorvastatin 40 mg tablet 40 mg PO QDAY amiodarone 200 mg tablet 200 mg PO BID tamsulosin 0.4 mg capsule 0.4 mg PO QHS metoprolol tartrate 50 mg tablet 50 mg PO BID digoxin 125 mcg (0.125 mg) tablet 125 mcg PO QDAY Eliquis 5 mg tablet 5 mg PO BID Referrals: Umu Cowan MD [Primary Care Provider, Family Practice] - In 1 week Problem List Clinical Impression: Medication adverse effect, Weakness, Abdominal pain, Nausea & vomiting Patient/Caregiver Discharge Instructions Education Materials: ED Diet for Vomiting or ..., ED Drug Reaction, Other Additional Instructions: I do not recommend that you take Ambien given your presentation today. I recommend that you continue following up with your primary care doctor to find the right treatment regimen for your difficulty sleeping. Today we consulted poison control, they recommended that you continue taking your regular cardiac medications as prescribed. Your CT scan did not identify any abnormalities, your labs and CT scan of your head were also normal. Please return immediately if you have worsening symptoms or new symptoms of concern Print Language: Pashto Stand Alone Forms: Syl Award Info., Patient Portal Info Letter
[2025-08-11 14:06] LABS: Collection Type, Urine Clean Catch; Squamous Epithelial Cell,Urine 0 /hpf (0-5)
[2025-08-11 14:19] LABS: Amphetamine/Methamp Scrn,U Negative (Negative); Barbiturate Screen,Urine Negative (Negative); Benzodiazepines Screen,Urine Positive (Negative); Benzoylecgonine Screen, Ur Negative (Negative); Fentanyl Screen,Urine Negative (Negative); Opiate Screen,Urine Negative (Negative); THC Screen,Urine Negative (Negative)
[2025-08-11 14:22] LABS: Bilirubin,Urine Negative (Negative); Blood,Urine Negative (Negative); Clarity,Urine Clear (Clear/Hazy); Color,Urine Yellow (Lt Yel-Yel); Culture Indicated,Urine Not Indicated; Glucose, Urine Negative (Negative); Ketones,Urine 1+ (Negative); Leukocyte Esterase,Urine Negative (Negative); Nitrite,Urine Negative (Negative); PH,Urine 6.5 (5.0-7.0); Protein,Urine Trace (Neg - Trace); RBC,Urine 9 /hpf (0-3); Specific Gravity,Urine 1.029 (1.001-1.035); Urobilinogen,Urine Negative mg/dL (0.0-1.0); WBC,Urine 1 /hpf (0-5)
[2025-08-11 14:28] LABS: Sperm,Urine Present
[2025-08-11 14:55] LABS: Base Excess, Venous 0 (-3-3); O2 Saturation, Venous 93 % (96-97); PCO2, Venous 41 mmHg (36-56); PO2, Venous 65 mmHg (15-58); pH, Venous 7.40 (7.33-7.66)
--- NOTE | 2025-08-11 15:03 | XR_ITS ---
Examination: CT abdomen with intravenous contrast CT pelvis with intravenous contrast 2-D coronal reconstructions 2-D sagittal reconstructions Date and time of exam: August 11, 2025, CT 07 hours INDICATIONS: Generalized abdominal pain today. CTDI: vol (mGy) 7.34 DLP: (mGycm) 496 Technique: Multiple axial sections of the abdomen and pelvis have been obtained. 64 slice high-resolution scanner used. 3 mm axial sections have been obtained, post intravenous injection 60 cc Isovue 370 2-D sagittal, coronal reconstructions obtained. Low dose protocols were performed. One or more of the following dose reduction techniques were used; automated exposure control, adjustment of the mA and/or KV according to patient size, use of iterative reconstruction technique. Findings: Mild enlargement left atrium left ventricle. No visualized liver or splenic lesion No gallstones No pancreatic or adrenal mass. No renal calculi Possible complex cyst 12 mm anterior left kidney. Abdominal aorta is normal in size Normal appendix 20 mm fat-containing umbilical hernia No bowel obstruction No free air Colonic diverticulosis Urinary bladder intact Prostatomegaly AP dimension 3.5 cm Moderate osteopenia with moderate disc narrowing L4-L5, L5-S1 IMPRESSION: Negative for gallstones Recommend renal sonography to confirm 12 mm anterior left renal cyst Normal appendix No bowel obstruction No free air. Mild prostatomegaly
[2025-08-11 15:20] LABS: Troponin I < 0.002 ng/mL (0.0-0.045)
[2025-08-11] MEDS: ONDANSETRON INJ 2 MG/ML INJ 2 ML 4 MG IVP (15:28)
[2025-08-11 15:45] LABS: Acetaminophen < 2.0 mcg/mL (10.0-20.0); Alcohol, Blood Medical < 10.0 mg/dL (0-10.0); Lipase 36 U/L (12-53); Salicylate < 3.0 mg/dL
--- NOTE | 2025-08-11 16:02 | PC.NURSE ---
Patient to CT via gurney with tech. Patient is alert and oriented, laying gurney, denies nausea. Patient spouse at bedside and call light within reach.
== END 2025-08-11 18:49 | disposition home or self-care (01) ==
PROVIDERS: Nurse Practitioner Primary Care; Emergency Provider Emergency Medicine; PCP Family Medicine
DX: T42.6X5A Adverse effect of other antiepileptic and sedative-hypnotic drugs, initial encounter (principal); E78.00 Pure hypercholesterolemia, unspecified; I10 Essential (primary) hypertension; I48.91 Unspecified atrial fibrillation; Z79.01 Long term (current) use of anticoagulants
CPT/HCPCS: 36415; 70450; 74177; 80053; 80162; 80307; 80320; 80329; 81001; 82803; 83690; 83735; 83880; 84484; 85025; 85610; 85730; 93005; 96374; 99285; A4649; J2405; Q9967; G0480